=== PATIENT | male | born 2000 | race African-American/Black ===

== ENCOUNTER 2019-11-25 20:47 | Emergency (ER) | payer OTHER ==
[~2019-11-25] VITALS: Ht 177.8 cm; Wt 61.4 kg
[2019-11-25 20:48] VITALS: BP 119/73
[2019-11-25] MEDS ORDERED: NORCO 5/325MG TABLET (BULK FOR ED) PO ONE (21:30)
[2019-11-25] MEDS ORDERED: BENZOCAINE 10% 9GM TUBE (ANBESOL) TOP STA (21:30)
[2019-11-25] MEDS ORDERED: MAGIC MOUTHWASH SUSPENSION BTL SSP STA (21:30)
[2019-11-25] MEDS ORDERED: NORC1TAB7 PO (21:51)
[2019-11-25] MEDS ORDERED: MAGICMW SSP (21:52)
[2019-11-25] MEDS ORDERED: ANBE20GE TOP (21:52)
== END 2019-11-25 21:58 | disposition home or self-care (01) ==
LOC: M ED 20:47
DX: S02.5XXA Fracture of tooth (traumatic), initial encounter for closed fracture (principal); W20.8XXA Other cause of strike by thrown, projected or falling object, initial encounter; Y99.1 Military activity; Z91.013 Allergy to seafood

== ENCOUNTER 2020-02-20 23:45 | Emergency (ER) | payer OTHER ==
[~2020-02-20] VITALS: Ht 177.8 cm; Wt 68.4 kg
[~2020-02-20 23:45] MED LIST: ANBE20GE TOP; MAGICMW SSP; NORC1TAB7 PO
[2020-02-21] MEDS ORDERED: NAPROXEN 250 MG TAB PO ONE (00:45)
[2020-02-21] MEDS ORDERED: LIDOCAINE 5% (LIDODERM) PATCH TD ONE (00:45)
--- NOTE | 2020-02-21 01:17 | REPVR ---
PROCEDURE INFORMATION: Exam: XR Chest, 2 Views Exam date and time: 02/21/2020 1:07 AM Age: 19 years old Clinical indication: Chest wall pain; Additional info: R chest wall pain TECHNIQUE: Imaging protocol: XR of the chest Views: 2 views. COMPARISON: No relevant prior studies available. FINDINGS: Lungs: Unremarkable. No consolidation. Pleural space: Unremarkable. No pleural effusion. No pneumothorax. Heart/Mediastinum: Unremarkable. No cardiomegaly. Bones/joints: Unremarkable. IMPRESSION: No acute findings. Electronically signed by: Yaw Scott On 02/21/2020 01:17:05 AM
[2020-02-21] MEDS ORDERED: ANEC4CRE3 TOP (02:02)
[2020-02-21] MEDS ORDERED: NAPR-837 PO (02:02)
[2020-02-21 02:11] VITALS: BP 151/69
[2020-02-21] MEDS ORDERED: **NOTE PATIENT COMMENT** MISC XX SCH (21:00)
== END 2020-02-21 02:16 | disposition home or self-care (01) ==
LOC: M ED 23:45
DX: R07.89 Other chest pain (principal); Z91.013 Allergy to seafood

== ENCOUNTER 2020-04-01 02:34 | Emergency (ER) | payer OTHER ==
[~2020-04-01] VITALS: Ht 182.9 cm; Wt 65.7 kg
[~2020-04-01 02:34] MED LIST changes: +ANEC4CRE3 TOP; +NAPR-837 PO
--- OUTSIDE RECORDS SUMMARY | 2020-04-01 02:43 | CCD ---
Author Author [facility] Address Unknown Phone Unavailable Support Name Relationship Address Phone [facility] Next Of Kin [address] [place] [address] Unavailable RONEN QUIÑONESNICA Next Of Kin [address] [place] [address] Re-disclosure Warning The records that you are about to access may contain information from federally-assisted alcohol or drug abuse programs. If such information is present, then the following federally mandated warning applies: This information has been disclosed to you from records protected by federal confidentiality rules (42 CFR part 2). The federal rules prohibit you from making any further disclosure of this information unless further disclosure is expressly permitted by the written consent of the person to whom it pertains or as otherwise permitted by 42 CFR part 2. A general authorization for the release of medical or other information is NOT sufficient for this purpose. The Federal rules restrict any use of the information to criminally investigate or prosecute any alcohol or drug abuse patient.The records that you are about to access may contain highly sensitive health information, the redisclosure of which is protected by Article 27-F of the [facility] Public Health law. If you continue you may have access to information: Regarding HIV / AIDS; Provided by facilities licensed or operated by the [facility] Office of Mental Health; or Provided by the [facility] Office for People With Developmental Disabilities. If such information is present, then the following [facility] mandated warning applies: This information has been disclosed to you from confidential records which are protected by state law. State law prohibits you from making any further disclosure of this information without the specific written consent of the person to whom it pertains, or as otherwise permitted by law. Any unauthorized further disclosure in violation of state law may result in a fine or residential sentence or both. A general authorization for the release of medical or other information is NOT sufficient authorization for further disc losure. Insurance Providers Payer name Policy type / Coverage type Policy ID Covered green party ID Covered green party's relationship to stevens Policy Stevens Plan Information [facility] ACTIVE DUTY [id number] SP [id number] [employer] [facility] REG O [id number] S [id number]
--- OUTSIDE RECORDS SUMMARY | 2020-04-01 03:40 | CCD ---
Author Author [facility] Address Unknown Phone Unavailable Support Name Relationship Address Phone [facility] Next Of Kin [address] [place] [address] Unavailable RONEN QUIÑONESNICA Next Of Kin [address] [place] [address] Re-disclosure Warning The records that you are [...] is protected by Article 27-F of the [facility] Public Health law. If you continue you may have access to information: Regarding HIV / AIDS; Provided by facilities licensed or operated by the [facility] Office of Mental Health; or Provided by the [facility] Office for People With Developmental Disabilities. If such information is present, then the following [facility] mandated warning applies: This information has been [...] law may result in a fine or snf sentence or both. A general authorization for the release of medical or other information is NOT sufficient authorization for further disc losure. Insurance Providers Payer name Policy type / Coverage type Policy ID Covered libertarian ID Covered libertarian's relationship to stevens Policy Stevens Plan Information [facility] ACTIVE DUTY [id number] SP [id number] [employer] [facility] REG O [id number] S [id number]
[2020-04-01 04:01] VITALS: BP 122/69
[2020-04-01] MEDS ORDERED: HYDR30SU PR (04:03)
== END 2020-04-01 04:11 | disposition home or self-care (01) ==
LOC: M ED 02:34
DX: K64.8 Other hemorrhoids (principal); Z91.013 Allergy to seafood

== ENCOUNTER 2020-05-24 12:40 | Emergency (ER) | payer OTHER, SELFPAY ==
[~2020-05-24] VITALS: Ht 172.7 cm; Wt 64.7 kg
[~2020-05-24 12:40] MED LIST changes: +HYDR30SU PR
[2020-05-24 12:45] VITALS: BP 123/78
[2020-05-24 14:32] LABS: CHLAMYDIA DNA AMPLIFICATION NEGATIVE (NEGATIVE); GC DNA AMPLIFICATION NEGATIVE (NEGATIVE)
== END 2020-05-24 13:59 | disposition home or self-care (01) ==
LOC: M ED 12:40
DX: L73.9 Follicular disorder, unspecified (principal); R21 Rash and other nonspecific skin eruption

== ENCOUNTER 2020-12-31 10:32 | Emergency (ER) | payer OTHER ==
[~2020-12-31] VITALS: Ht 182.9 cm; Wt 63.5 kg
--- OUTSIDE RECORDS SUMMARY | 2020-12-31 10:41 | CCD ---
Author Author [facility] Address Unknown Phone Unavailable Support Name Relationship Address Phone [facility] Next Of Kin [address] [place] [address] Unavailable ABRAHAM QUIÑONES Next Of Kin [address] [place] [address] Re-disclosure Warning The records that you are [...] is protected by Article 27-F of the [facility] Public Health law. If you continue you may have access to information: Regarding HIV / AIDS; Provided by facilities licensed or operated by the [facility] Office of Mental Health; or Provided by the [facility] Office for People With Developmental Disabilities. If such information is present, then the following [facility] mandated warning applies: This information [...] law may result in a fine or fdc sentence or both. A general authorization for the release of medical or other information is NOT sufficient authorization for further disc losure. Immunizations Vaccine Date Status Description Data Source(s) COVID-19 VACCINE Moderna 07/22/2020 12:00:00 AM EDT completed [facility] Vaccine Series Complete: YESThis Data wa s Submitted to [facility] Via [employer]. COVID-19 VACCINE Moderna 06/28/2020 12:00:00 AM EDT completed [facility] Vaccine Series Complete: NOThis Data was Submitted to [facility] Via [employer]. Medications No Information Insurance Providers Payer name Policy type / Coverage type Policy ID Covered republican ID Covered republican's relationship to stevens Policy Stevens Plan Information [facility] ACTIVE DUTY [id number] SP [id number] SELF PAY ONLY [id number] SP [id number] [employer] [place] [facility] O [id number] S [id number] Problems, Conditions, and Diagnoses No Information Surgeries/Procedures No Information Results ID Date Data Source [id number] 05/06/2020 09:58:00 AM EST [facility] Name Value Range Interpretation Code Description Data Katie rce(s) Supporting Document(s) SARS coronavirus 2 RNA Not Detected [facility] This lab was ordered by [facility] and reported by [facility]. Procedure Social History No Information
--- OUTSIDE RECORDS SUMMARY | 2020-12-31 12:27 | CCD ---
Author Author [facility] Address Unknown Phone Unavailable Support Name Relationship Address Phone [facility] Next Of Kin [address] [place] [address] Unavailable ABRAHAM QUIÑONES Next Of Kin [address] [place] [address] Re-disclosure Warning The records that you are [...] is protected by Article 27-F of the [facility] Public Health law. If you continue you may have access to information: Regarding HIV / AIDS; Provided by facilities licensed or operated by the [facility] Office of Mental Health; or Provided by the [facility] Office for People With Developmental Disabilities. If such information is present, then the following [facility] mandated warning applies: This [...] law may result in a fine or half-way sentence or both. A general authorization for the release of medical or other information is NOT sufficient authorization for further disc losure. Immunizations Vaccine Date Status Description Data Source(s) COVID-19 VACCINE Moderna 07/22/2020 12:00:00 AM EDT completed [facility] Vaccine Series Complete: YESThis Data wa s Submitted to [facility] Via [employer]. COVID-19 VACCINE Moderna 06/28/2020 12:00:00 AM EDT completed [facility] Vaccine Series Complete: NOThis Data was Submitted to [facility] Via [employer]. Medications No Information Insurance Providers Payer name Policy type / Coverage type Policy ID Covered alliance party ID Covered alliance party's relationship to stevens Policy Stevens Plan Information [facility] ACTIVE DUTY [id number] SP [id number] SELF PAY ONLY [id number] SP [id number] [employer] [place] [facility] O [id number] S [id number] Problems, Conditions, and Diagnoses No Information Surgeries/Procedures No Information Results ID Date Data Source [id number] 05/06/2020 09:58:00 AM EST [facility] Name Value Range Interpretation Code Description Data Katie rce(s) Supporting Document(s) SARS coronavirus 2 RNA Not Detected [facility] This lab was ordered by [facility] and reported by [facility]. Procedure Social History No Information
[2020-12-31] MEDS ORDERED: LIDOCAINE 5% (LIDODERM) PATCH TD ONE (12:50)
[2020-12-31] MEDS ORDERED: KETOROLAC 60MG 2ML VIAL IM ONE (12:50)
--- NOTE | 2020-12-31 14:01 | REPVR ---
PROCEDURE INFORMATION: Exam: CT Neck Without Contrast Exam date and time: 12/31/2020 1:41 PM Age: 20 years old Clinical indication: Neck pain; Additional info: R cervical massxyrs, now painful, restricting neck rom TECHNIQUE: Imaging protocol: Computed tomography images of the neck without contrast. Radiation optimization: All CT scans at this facility use at least one of these dose optimization techniques: automated exposure control; mA and/or kV adjustment per patient size (includes targeted exams where dose is matched to clinical indication); or iterative reconstruction. COMPARISON: CR Chest, 2 view PA, Lat 02/21/2020 12:58 AM FINDINGS: Orbital cavity: The orbits are intact. Mastoid air cells: The mastoids are well aerated. Paranasal sinuses: The paranasal sinuses are well aerated. Nasopharynx: Unremarkable. Dental: Artifact from patient's dental hardware. Oropharynx: Unremarkable. No significant tonsillar enlargement. Hypopharynx: Unremarkable. Larynx: Unremarkable. Normal epiglottis. Retropharyngeal space: Unremarkable. Submandibular/Parotid glands: Normal. Glands are normal in size. Thyroid: Homogeneous thyroid. Lymph nodes: No confluent lymphadenopathy. Trachea: Visualized trachea is unremarkable. Lungs: The included lungs are clear. Esophagus: Patulous esophagus. Bones/joints: No lytic or blastic disease. No acute fracture. Soft tissues: Unremarkable. No significant soft tissue swelling. Other findings: Limited noncontrast exam. IMPRESSION: Limited exam without dominant mass or confluent lymphadenopathy. If concern persists consider targeted ultrasound or MRI evaluation with contrast. Electronically signed by: Bo Martin On 12/31/2020 14:00:41 PM
[2020-12-31] MEDS ORDERED: ASPE4PAD TOP (14:36)
[2020-12-31] MEDS ORDERED: METH-1165 PO (14:36)
[2020-12-31] MEDS ORDERED: NAPR-837 PO (14:36)
[2020-12-31 14:55] VITALS: BP 114/60
[2020-12-31] MEDS ORDERED: **NOTE PATIENT COMMENT** MISC XX SCH (21:00)
== END 2020-12-31 15:00 | disposition home or self-care (01) ==
LOC: M ED 10:32
DX: M54.50 Low back pain, unspecified (principal); R22.1 Localized swelling, mass and lump, neck; Z91.013 Allergy to seafood
CPT/HCPCS: 70490; 96372; 99283; J1885

== ENCOUNTER 2021-01-17 13:32 | Emergency (ER) | payer OTHER ==
[~2021-01-17] VITALS: Ht 182.9 cm; Wt 63.2 kg
[~2021-01-17 13:32] MED LIST changes: +ASPE4PAD TOP; +METH-1165 PO
[2021-01-17] MEDS ORDERED: KETOROLAC 60MG 2ML VIAL IM ONE (14:45)
--- NOTE | 2021-01-17 15:06 | REPVR ---
PROCEDURE INFORMATION: Exam: CT Lumbar Spine Without Contrast Exam date and time: 01/17/2021 2:35 PM Age: 20 years old Clinical indication: Low back pain; Additional info: Back pain x couple wks, mild improvement with meds, no prior TECHNIQUE: Imaging protocol: Computed tomography images of the lumbar spine without contrast. Radiation optimization: All CT scans at this facility use at least one of these dose optimization techniques: automated exposure control; mA and/or kV adjustment per patient size (includes targeted exams where dose is matched to clinical indication); or iterative reconstruction. COMPARISON: No relevant prior studies available. FINDINGS: Vertebrae: There are 5 [id number] lumbar type vertebral bodies. The S1 vertebral segment is lumbarized, a small S1-S2 disc present. 2-3 mm of degenerative retrolisthesis of L5 on S1. L1-L2: No significant disc protrusion. No severe spinal canal stenosis. No significant neural foraminal narrowing. L2-L3: No significant disc protrusion. No severe spinal canal stenosis. No significant neural foraminal narrowing. L3-L4: Mild disc bulge. No stenoses. L4-L5: Mild disc bulge, facet arthropathy and ligamentum flavum buckling. The central spinal canal remains patent. Mild left neural foraminal stenosis. No significant right neural foraminal narrowing. L5-S1: Slight retrolisthesis. Moderate disc bulge and facet arthropathy. Central spinal canal stenosis is mild. Suspect lateral recess stenoses near the S1 nerve roots. Mild bilateral neural foraminal stenoses. S1-S2: The S1 vertebral segment is lumbarized. A small intervertebral disc present. No stenoses. Soft tissues: Unremarkable. IMPRESSION: 1. Transitional anatomy of the the lumbosacral junction. The S1 vertebral segment is considered to be lumbarized. 2. Lateral recess stenoses at L5-S1 may be cause of S1 distribution radiculopathy. Electronically signed by: Michelle Slater On 01/17/2021 15:06:20 PM
[2021-01-17] MEDS ORDERED: BACL1TAB8 PO (15:35)
[2021-01-17] MEDS ORDERED: BACL10TA2 PO (15:45)
[2021-01-17 15:46] VITALS: BP 127/54
--- NOTE | 2021-01-18 06:40 | ED PDOC ---
Post-Departure Follow-Up ct ls spine faxed to [facility] Eliz Goncalves MD Jan 18, 2021 06:40
== END 2021-01-17 15:46 | disposition home or self-care (01) ==
LOC: M ED 13:32
DX: M51.26 Other intervertebral disc displacement, lumbar region (principal); M43.17 Spondylolisthesis, lumbosacral region; M48.061 Spinal stenosis, lumbar region without neurogenic claudication; Z91.013 Allergy to seafood
CPT/HCPCS: 72131; 96372; 99283; J1885

== ENCOUNTER 2021-02-12 08:27 | Emergency (ER) | payer OTHER ==
[~2021-02-12] VITALS: Ht 182.9 cm; Wt 63.7 kg
[~2021-02-12 08:27] MED LIST changes: +BACL10TA2 PO; +BACL1TAB8 PO
[2021-02-12] MEDS ORDERED: TYLE650T38 PO (08:43)
[2021-02-12 11:56] VITALS: BP 115/64
== END 2021-02-12 11:58 | disposition home or self-care (01) ==
LOC: M ED 08:27
DX: M54.42 Lumbago with sciatica, left side (principal); Z79.899 Other long term (current) drug therapy

== ENCOUNTER 2021-11-13 22:07 | Emergency (ER) | payer OTHER ==
[~2021-11-13] VITALS: Ht 185.4 cm; Wt 62.9 kg
[~2021-11-13 22:07] MED LIST changes: +TYLE650T38 PO
[2021-11-13 22:08] VITALS: BP 123/71
[2021-11-14] MEDS ORDERED: VALT500T PO (00:34)
[2021-11-14] MEDS ORDERED: VALT1TAB PO (00:34)
[2021-11-14] MEDS ORDERED: valACYclovir HCL 500 MG TAB PO ONE (00:40)
== END 2021-11-14 01:05 | disposition home or self-care (01) ==
LOC: M ED 22:07
DX: B02.9 Zoster without complications (principal); B34.1 Enterovirus infection, unspecified; B34.8 Other viral infections of unspecified site; F17.290 Nicotine dependence, other tobacco product, uncomplicated; Z79.899 Other long term (current) drug therapy; Z91.013 Allergy to seafood

== ENCOUNTER 2022-12-01 20:43 | Emergency (ER) | payer OTHER ==
[~2022-12-01] VITALS: Ht 185.4 cm; Wt 62.0 kg
[~2022-12-01 20:43] MED LIST changes: +VALT1TAB PO; +VALT500T PO
[2022-12-01] MEDS ORDERED: HYDR1CRE30 TOP (23:38)
[2022-12-01] MEDS ORDERED: PRED20TA PO (23:38)
[2022-12-01] MEDS ORDERED: CETI10CH PO (23:38)
[2022-12-01] MEDS ORDERED: CETIRIZINE (ZyrTEC) 10 MG TAB PO ONE (23:40)
[2022-12-01] MEDS ORDERED: HYDROCORTISONE 1% CREAM 30GM TOP ONE (23:40)
[2022-12-01] MEDS ORDERED: predniSONE 20 MG TAB PO ONE (23:40)
[2022-12-01 23:49] VITALS: BP 121/77; TEMP 97.8; O2SAT 100
== END 2022-12-02 00:13 | disposition home or self-care (01) ==
LOC: M ED 20:43
DX: L29.9 Pruritus, unspecified (principal); Z91.013 Allergy to seafood; Z79.52 Long term (current) use of systemic steroids; Z79.899 Other long term (current) drug therapy; Z79.891 Long term (current) use of opiate analgesic
CPT/HCPCS: 99283; J7512